=== PATIENT | female | born 1985 | race Caucasian/White ===

== ENCOUNTER 2017-08-23 10:54 | Emergency (ER) | payer MEDICAID ==
[2017-08-23 11:00] VITALS: BP 137/68
--- NOTE | 2017-08-23 12:31 | ED Physician Documentation ---
PD HPI SKIN - Stated complaint Stated Complaint: ABSCESS ON SHLDR - Chief complaint Chief Complaint: Wound - History obtained from History obtained from: Patient - History of Present Illness Timing - onset: Other (She has a remote history of MRSA, developed an abscess about 4-5 days ago over the left deltoid. It is was seen at [facility] 2 days ago, per her description and I&D was attempted but there was really no drainage. It popped spontaneously in the shower yesterday but still has swelling and fluctuance. No fevers. She is on Bactrim. Of note she has a history of heroin abuse, last use was about a week ago and she does have recent track powers in the left antecubital fossa, but declines to talk with the nursing home social worker about this.) Review of Systems Constitutional: denies: Fever, Chills Nose: denies: Rhinorrhea / runny nose, Congestion Cardiac: denies: Chest pain / pressure, Palpitations Respiratory: denies: Dyspnea PD PAST MEDICAL HISTORY - Past Medical History Past Medical History: Yes Cardiovascular: Hypertension Respiratory: Pneumonia, Other Endocrine/Autoimmune: None GI: None : None HEENT: None Psych: Depression, Anxiety Musculoskeletal: Other Derm: None - Past Surgical History Past Surgical History: Yes Ortho: ACL reconstruction - Present Medications Home Medications: Ambulatory Orders Medication Instructions Recorded Confirmed Venlafaxine ER [Effexor ER] 150 mg PO DAILY 08/24/13 07/29/15 Sulfamethox/Trimeth 800/160 1 each PO BID 08/23/17 08/23/17 [Bactrim Ds 800/160] Water Pill 08/23/17 - Allergies Allergies/Adverse Reactions: Allergies Allergy/AdvReac Type Severity Reaction Status Date / Time No Known Drug Allergies Allergy Verified 08/23/17 11:00 - Social History Does the pt smoke?: No Smoking Status: Never smoker Does the pt drink ETOH?: No Does the pt have substance abuse?: No - Immunizations Immunizations are current?: No - POLST Patient has POLST: No PD ED PE NORMAL - Vitals Vital signs reviewed: Yes - General General: Alert and oriented X 3, No acute distress - Extremities Extremities: Other (Track powers left antecubital fossa, there is a pointed abscess over the left deltoid, small to moderate in size with overlying cellulitis, good range of motion of the shoulder.) - Neuro Neuro: Alert and oriented X 3, Normal speech Results - Vitals Vitals: Vital Signs - 24 hr 08/23/17 10:57 Temperature 36.7 C Heart Rate 72 Respiratory 18 Rate Blood Pressure 137/68 H O2 Saturation 97 Oxygen O2 Source Room air Procedures - Abscess I&D (location) L deltoid Preparation: Betadine, Lidocaine 1%, Marcaine 0.5% Incision: Incised with scalpel, Purulent drainage, Loculations broken, Packed, Culture obtained Other: Pt tolerated well, Dressing applied, Antibiotic prescribed Departure - Departure Disposition: 01 Home, Self Care Clinical Impression: Abscess Condition: Good Record reviewed to determine appropriate education?: Yes Instructions: ED Abscess IandD Comments: Continue the sulfa based antibiotic you are on. We are performing a wound culture, the results should be done in 48-72 hours. If antibiotic change is necessary we will call you. Return if worse in the meantime, especially if you develop increased pain, fevers, cannot keep down the medication. Otherwise follow-up with your physician in approximately 2-3 days. Your blood pressure was elevated today on check into the emergency department. This does not mean that you have hypertension, it is a common phenomenon to come to the emergency department and have elevated blood pressure. I recommend that you see your primary care physician within the week to have it rechecked when you are feeling better. Discharge Date/Time: 08/23/17 12:49
== END 2017-08-23 12:49 | disposition home or self-care (01) ==
LOC: ED 10:54
DX: L02.414 Cutaneous abscess of left upper limb (principal); L03.114 Cellulitis of left upper limb; I10 Essential (primary) hypertension; Z86.14 Personal history of Methicillin resistant Staphylococcus aureus infection
CPT/HCPCS: 10060; 87070; 87205; 99282

== ENCOUNTER 2017-09-20 09:30 | Emergency (ER) | payer MEDICAID ==
[2017-09-20] MEDS ORDERED: ONDANSETRON 4 MG/2 ML VIAL IVP STA (09:52)
[2017-09-20] MEDS ORDERED: FAMOTIDINE 20 MG/50 ML 50 ML IV ONE (09:52)
[2017-09-20 10:16] LABS: BASOPHILS # (AUTO) 0.1 10^3/uL (0.0-0.1); BASOPHILS % (AUTO) 0.6 %; EOSINOPHILS # (AUTO) 0.1 10^3/uL (0.0-0.7); EOSINOPHILS % (AUTO) 1.7 %; HGB - HEMOGLOBIN 12.6 g/dL (12.0-16.0); LYMPHOCYTES # (AUTO) 1.1 10^3/uL (1.5-3.5); LYMPHOCYTES % (AUTO) 13.5 %; MEAN CORPUSCULAR HEMOGLOBIN 29.1 pg (27.0-31.0); MEAN CORPUSCULAR HGB CONC 34.7 g/dL (32.0-36.0); MEAN CORPUSCULAR VOLUME 83.9 fL (81.0-99.0); MEAN PLATELET VOLUME 7.9 fL (7.9-10.8); MONOCYTES # (AUTO) 0.5 10^3/uL (0.0-1.0); MONOCYTES % (AUTO) 5.8 %; NEUTROPHILS # (AUTO) 6.3 10^3/uL (1.5-6.6); NEUTROPHILS % (AUTO) 78.4 %; PLT - PLATELET COUNT 289 10^3/uL (130-450); RED BLOOD COUNT 4.34 10^6/uL (4.20-5.40); RED CELL DISTRIBUTION WIDTH 12.4 % (12.0-15.0)
[2017-09-20 10:30] LABS: ALBUMIN 3.9 g/dL (3.2-5.5); ALKALINE PHOSPHATASE 47 IU/L (42-121); ALT ALANINE AMINOTRANSFERASE 56 IU/L (10-60); AST ASPARTATE AMINOTRANSFERASE 45 IU/L (10-42); BUN - BLOOD UREA NITROGEN 9 mg/dL (6-20); CARBON DIOXIDE - CO2 24 mmol/L (21-32); CHLORIDE 102 mmol/L (101-111); CREATININE 0.6 mg/dL (0.4-1.0); GFR - MDRD 116 (>89); GLUCOSE 111 mg/dL (70-100); SODIUM 134 mmol/L (135-145); TOTAL PROTEIN 7.7 g/dL (6.7-8.2)
[2017-09-20 10:31] LABS: LIPASE < 10 U/L (22-51)
--- NOTE | 2017-09-20 11:18 | ED Physician Documentation ---
History of Present Illness - Stated complaint Stated Complaint: VOMITING - Chief complaint Chief Complaint: Abd Pain - Additonal information Additional information: hx from pt 32 f no prior abd surgery denies preg hx upper abd pain, was going to get EGD but got better to ED with a motnh of upper abd pain occ vomit blood no blood in BM hx Hep C 2/2 IVDA but no hx cirrhosis or varices no fever Review of Systems Constitutional: denies: Fever Cardiac: denies: Chest pain / pressure Respiratory: denies: Dyspnea GI: reports: Abdominal Pain (discomfort and nausea), Nausea, Hematemesis. denies: Vomiting, Diarrhea, Bloody / black stool : denies: Now EGA (denies) PD PAST MEDICAL HISTORY - Past Medical History Past Medical History: No Cardiovascular: Hypertension Respiratory: Pneumonia, Other Endocrine/Autoimmune: None GI: GERD : None HEENT: None Psych: Depression, Anxiety Musculoskeletal: Other Derm: None Other Past Medical History: Hep C positive - Past Surgical History Past Surgical History: Yes Ortho: ACL reconstruction, Other - Present Medications Home Medications: Ambulatory Orders Medication Instructions Recorded Confirmed Ondansetron Odt [Zofran] 4 mg TL Q6H PRN #10 tablet 09/20/17 Sucralfate 1 gm PO ACHS #120 tablet 09/20/17 raNITIdine [Zantac] 150 mg PO BID #60 tablet 09/20/17 - Allergies Allergies/Adverse Reactions: Allergies Allergy/AdvReac Type Severity Reaction Status Date / Time No Known Drug Allergies Allergy Verified 08/23/17 11:00 - Social History Does the pt smoke?: No Smoking Status: Never smoker Does the pt drink ETOH?: No Does the pt have substance abuse?: Yes Substance Use and Type: Meth, Heroin - Immunizations Immunizations are current?: No - POLST Patient has POLST: No PD ED PE NORMAL - Vitals Vital signs reviewed: Yes - Cardiac Cardiac: RRR - Respiratory Respiratory: No respiratory distress, Clear bilaterally - Abdomen Abdomen: Soft, Other (minimally TTP, no pulsatile mass, no distensions or ascites) - Derm Derm: Normal color - Neuro Neuro: Alert and oriented X 3 Results - Vitals Vitals: Vital Signs - 24 hr 09/20/17 09/20/17 09:40 11:31 Temperature 36.4 C L Heart Rate 84 73 Respiratory 16 18 Rate Blood Pressure 143/89 H 118/71 O2 Saturation 96 100 Oxygen O2 Source Room air - Labs Labs: Laboratory Tests 09/20/17 09/20/17 09/20/17 09:50 10:11 10:11 WBC 8.0 RBC 4.34 Hgb 12.6 Hct 36.4 L MCV 83.9 MCH 29.1 MCHC 34.7 RDW 12.4 Plt Count 289 MPV 7.9 Neut # 6.3 Lymph # 1.1 L [place] # 0.5 Eos # 0.1 Baso # 0.1 Absolute Nucleated RBC 0.00 Nucleated RBC % 0.0 Sodium 134 L Potassium 3.9 Chloride 102 Carbon Dioxide 24 Anion Gap 8.0 BUN 9 Creatinine 0.6 Estimated GFR (MDRD) 116 Glucose 111 H Calcium 9.0 Total Bilirubin 1.0 AST 45 H ALT 56 Alkaline Phosphatase 47 Total Protein 7.7 Albumin 3.9 Globulin 3.8 Albumin/Globulin Ratio 1.0 Lipase < 10 L Serum HCG, Qual NEGATIVE Ethyl Alcohol < 5.0 PD MEDICAL DECISION MAKING - ED course ED course: sx c/w gastritis / PUD last vomited blood several days ago, hemodynamically stable, nl H/H will dc with H2B carafate zofran and referral to surgery for EGD Departure - Departure Disposition: 01 Home, Self Care Clinical Impression: Gastritis Qualifiers: Gastritis type: unspecified gastritis Chronicity: acute Gastritis bleeding: with bleeding Qualified Code(s): K29.01 - Acute gastritis with bleeding Instructions: ED PUD Vs Gastritis Follow-Up: Edson iLnder MD [Primary Care Provider] - Teofilo Larios MD [Provider Admit Priv/Credential] - Prescriptions: Ondansetron Odt [Zofran] 4 mg TL Q6H PRN #10 tablet PRN Reason: Nausea / Vomiting raNITIdine [Zantac] 150 mg PO BID #60 tablet Sucralfate 1 gm PO ACHS #120 tablet Comments: Your labs look fine I think it is safe for you to go home for now I do recommend you call the surigcial clinic to get the endoscopy scheduled Take the medications I prescribed Avoid alcohol, spicy foods, citrus and NSAIDS such as motrin Return to the ER if worse
[2017-09-20 11:31] VITALS: BP 118/71
[2017-09-20] MEDS ORDERED: MAG HYDROX/AL HYDROX/SIMETH 30 ML UDC PO STA (11:43)
[2017-09-20] MEDS ORDERED: LIDOCAINE VISCOUS 2% 15 ML UDC MM STA (11:43)
[2017-09-20 11:44] LABS: HCG,QUALITATIVE BLOOD NEGATIVE
== END 2017-09-20 12:02 | disposition home or self-care (01) ==
LOC: ED 09:30
DX: K29.01 Acute gastritis with bleeding (principal); I10 Essential (primary) hypertension
CPT/HCPCS: 36415; 80053; 80320; 83690; 84703; 85025; 96365; 96375; 99283; A9270

== ENCOUNTER 2017-10-06 08:48 | Outpatient (CLI) | payer MEDICAID ==
[2017-10-06 12:46] LABS: BASOPHILS % (AUTO) 0.5 %; EOSINOPHILS # (AUTO) 0.2 10^3/uL (0.0-0.7); EOSINOPHILS % (AUTO) 2.6 %; LYMPHOCYTES # (AUTO) 1.3 10^3/uL (1.5-3.5); LYMPHOCYTES % (AUTO) 19.7 %; MEAN CORPUSCULAR HEMOGLOBIN 29.1 pg (27.0-31.0); MEAN CORPUSCULAR HGB CONC 34.6 g/dL (32.0-36.0); MEAN CORPUSCULAR VOLUME 84.2 fL (81.0-99.0); MEAN PLATELET VOLUME 9.1 fL (7.9-10.8); MONOCYTES # (AUTO) 0.4 10^3/uL (0.0-1.0); MONOCYTES % (AUTO) 5.7 %; NEUTROPHILS # (AUTO) 4.6 10^3/uL (1.5-6.6); NEUTROPHILS % (AUTO) 71.5 %; PLT - PLATELET COUNT 295 10^3/uL (130-450); RED BLOOD COUNT 4.46 10^6/uL (4.20-5.40); RED CELL DISTRIBUTION WIDTH 12.7 % (12.0-15.0); WHITE BLOOD COUNT 6.4 x10^3/uL (4.8-10.8)
[2017-10-06 13:10] LABS: ALBUMIN 3.7 g/dL (3.2-5.5); ALKALINE PHOSPHATASE 57 IU/L (42-121); ALT ALANINE AMINOTRANSFERASE 67 IU/L (10-60); AST ASPARTATE AMINOTRANSFERASE 59 IU/L (10-42); BILIRUBIN,TOTAL 0.4 mg/dL (0.2-1.0); BUN - BLOOD UREA NITROGEN 9 mg/dL (6-20); CALCIUM 8.9 mg/dL (8.5-10.3); CARBON DIOXIDE - CO2 24 mmol/L (21-32); CHLORIDE 104 mmol/L (101-111); CHOL/HDL RATIO 4.2 (<4.4); CHOLESTEROL 152 mg/dL; CREATININE 0.5 mg/dL (0.4-1.0); GFR - MDRD 143 (>89); GLUCOSE 109 mg/dL (70-100); HDL CHOLESTEROL 36 mg/dL; LDL CHOLESTEROL,CALCULATED 100 mg/dL; LDL/HDL RATIO 2.8 (<4.4); SODIUM 135 mmol/L (135-145); TOTAL PROTEIN 7.5 g/dL (6.7-8.2); VLDL CHOLESTEROL 16 mg/dL
[2017-10-06 13:28] LABS: MUDS CUTOFF CONCENTRATIONS CUTOFF CONC BELOW:
[2017-10-06 19:34] LABS: AMPHETAMINE SCREEN,URINE NEGATIVE (NEGATIVE); BENZODIAZEPINES SCREEN, URINE NEGATIVE (NEGATIVE); COCAINE SCREEN URINE NEGATIVE (NEGATIVE); METHADONE SCREEN, URINE NEGATIVE (NEGATIVE); METHAMPHETAMINES SCREEN, URINE NEGATIVE (NEGATIVE); OPIATE SCREEN, URINE POSITIVE (NEGATIVE); OXYCODONE SCREEN, URINE NEGATIVE (NEGATIVE); PROPOXYPHENE SCREEN, URINE NEGATIVE (NEGATIVE); TRICYCLIC ANTIDEPRESSANT,URINE NEGATIVE (NEGATIVE)
[2017-10-07 13:57] LABS: HEPATITIS B CORE AB TOTAL NON-REACTIVE (NON-REACTIVE)
[2017-10-07 13:59] LABS: HEPATITIS B SURFACE ANTIGEN NON-REACTIVE (NON-REACTIVE)
[2017-10-08 17:16] LABS: HCV RNA QNT 5.65 Log IU/mL (NOT DETECTED); HCV RNA QUANT RT PCR 446000 IU/mL (NOT DETECTED)
== END 2017-10-06 08:49 | disposition home or self-care (01) ==
LOC: LAB.N 08:48
PROVIDERS: ATTEND Family Medicine
DX: F11.10 Opioid abuse, uncomplicated (principal); I10 Essential (primary) hypertension; R11.2 Nausea with vomiting, unspecified; K30 Functional dyspepsia; B18.2 Chronic viral hepatitis C; E66.01 Morbid (severe) obesity due to excess calories
CPT/HCPCS: 36415; 80053; 80061; 80306; 83721; 84443; 85025; 86317; 86704; 86707; 86709; 87340; 87350; 87522

== ENCOUNTER 2018-08-24 15:47 | Emergency (ER) | payer MEDICAID ==
[2018-08-24] MEDS ORDERED: ONDANSETRON 4 MG/2 ML VIAL IVP STA (16:19)
[2018-08-24] MEDS ORDERED: DEXAMETHASONE 10 MG/ML VIAL IVP STA (16:19)
[2018-08-24] MEDS ORDERED: KETOROLAC 30 MG/ML VIAL IVP STA (16:19)
[2018-08-24] MEDS ORDERED: SODIUM CHLORIDE 0.9% 1,000 ML IV ONE (16:19)
--- NOTE | 2018-08-24 16:28 | ED Physician Documentation ---
PD HPI NVD - Stated complaint Stated Complaint: FLU SYMPTOMS - Chief complaint Chief Complaint: Abd Pain - History obtained from History obtained from: Patient - History of Present Illness Timing - onset: How many days ago (2) Timing - duration: Days (2) Timing - details: Gradual onset, Still present Associated symptoms: Abdominal pain, Near syncope / syncope, Loss of appetite Contributing factors: Sick contact Improved by: Laying still, Vomiting Worsened by: Eating Similar symptoms before: Has not had sx before Recently seen: Not recently seen - Additonal information Additional information: Previously well 32-year-old female is a daughter who is been sick with influenza a and the patient herself has become ill with a cough and congestion 2 days ago she has not had much in way of a fever she has had a lot of vomiting yesterday and today she has vomited a bit less. She has had a headache associated with this. Review of Systems Constitutional: reports: Chills, Myalgias, Fatigue. denies: Fever Eyes: denies: Decreased vision Ears: denies: Ear pain Nose: reports: Rhinorrhea / runny nose, Congestion Throat: reports: Sore throat Cardiac: denies: Chest pain / pressure, Palpitations Respiratory: reports: Dyspnea, Cough GI: reports: Abdominal Pain, Nausea, Vomiting : denies: Dysuria, Frequency PD PAST MEDICAL HISTORY - Past Medical History Past Medical History: Yes Cardiovascular: Hypertension Respiratory: Pneumonia, Other Endocrine/Autoimmune: None GI: GERD : None HEENT: None Psych: Depression, Anxiety Musculoskeletal: Other Derm: None - Past Surgical History Past Surgical History: Yes Ortho: ACL reconstruction, Other - Present Medications Home Medications: Ambulatory Orders Medication Instructions Recorded Confirmed Ondansetron Odt [Zofran] 4 mg TL Q6H PRN #10 tablet 09/20/17 Sucralfate 1 gm PO ACHS #120 tablet 09/20/17 raNITIdine [Zantac] 150 mg PO BID #60 tablet 09/20/17 Ondansetron Odt [Zofran] 4 mg TL Q6H PRN #10 tablet 08/24/18 - Allergies Allergies/Adverse Reactions: Allergies Allergy/AdvReac Type Severity Reaction Status Date / Time No Known Drug Allergies Allergy Verified 08/24/18 15:59 - Social History Does the pt smoke?: No Smoking Status: Never smoker Does the pt drink ETOH?: No Does the pt have substance abuse?: Yes - Immunizations Immunizations are current?: No - POLST Patient has POLST: No PD ED PE NORMAL - Vitals Vital signs reviewed: Yes (normal ) - General General: Alert and oriented X 3, Well developed/nourished - HEENT HEENT: Atraumatic, PERRL, EOMI, Ears normal, Other (dry mucous membranes ) - Neck Neck: Supple, no meningeal sign, No bony TTP - Cardiac Cardiac: RRR, No murmur - Respiratory Respiratory: No respiratory distress, Clear bilaterally - Abdomen Abdomen: Soft, Non tender, Non distended - Back Back: No CVA TTP, No spinal TTP - Derm Derm: Normal color, No rash - Extremities Extremities: No deformity, No edema - Neuro Neuro: Alert and oriented X 3, paint mixer 2-12 intact, No motor deficit, No sensory deficit, Normal speech Eye Opening: Spontaneous Motor: Obeys Commands Verbal: Oriented GCS Score: 15 - Psych Psych: Normal mood, Normal affect Results - Vitals Vitals: Vital Signs - 24 hr 08/24/18 15:56 Temperature 36.2 C L Heart Rate 92 Respiratory 18 Rate Blood Pressure 125/73 O2 Saturation 95 Oxygen O2 Source Room air - Labs Labs: Laboratory Tests 08/24/18 08/24/18 08/24/18 16:30 16:30 16:45 WBC 5.3 RBC 4.82 Hgb 14.0 Hct 40.7 MCV 84.4 MCH 29.0 MCHC 34.4 RDW 12.7 Plt Count 244 MPV 8.5 Neut # (Auto) 3.3 Lymph # (Auto) 1.4 L [place] # (Auto) 0.5 Eos # (Auto) 0.0 Baso # (Auto) 0.1 Absolute Nucleated RBC 0.00 Nucleated RBC % 0.1 Sodium 136 Potassium 3.2 L Chloride 102 Carbon Dioxide 24 Anion Gap 10.0 BUN 16 Creatinine 0.7 Estimated GFR (MDRD) 97 Glucose 121 H Calcium 8.8 Total Bilirubin 0.5 AST 53 H ALT 65 H Alkaline Phosphatase 55 Total Protein 8.1 Albumin 3.9 Globulin 4.2 Albumin/Globulin Ratio 0.9 L Lipase 24 Influenza A (Rapid) POSITIVE H Influenza B (Rapid) Negative Procedures - IVC sono (time) 1620 Bedside IVC sono: IVC measures (cm) (0.88), IVC collapsed c insp (cm) (complete), Dehydration (est 2 liter deficit) PD MEDICAL DECISION MAKING - ED course Complexity details: reviewed old records, reviewed results, re-evaluated patient, considered differential, d/w patient ED course: 32 y/o female with cough and congestion with vomiting is found to be dehydrated on interrogation of the IVC. IV fluids are begun. The patient is given IV decadron, zofran and toradal and requires rescue with dilaudid. Departure - Departure Clinical Impression: Dehydration, Gastroenteritis, Influenza A Instructions: ED Flu, ED Dehydration Follow-Up: [facility] [Provider Group] Prescriptions: Ondansetron Odt [Zofran] 4 mg TL Q6H PRN #10 tablet PRN Reason: Nausea / Vomiting Forms: Activity restrictions
[2018-08-24 16:36] LABS: BASOPHILS # (AUTO) 0.1 10^3/uL (0.0-0.1); BASOPHILS % (AUTO) 1.1 %; EOSINOPHILS % (AUTO) 0.2 %; LYMPHOCYTES # (AUTO) 1.4 10^3/uL (1.5-3.5); LYMPHOCYTES % (AUTO) 26.7 %; MEAN CORPUSCULAR HGB CONC 34.4 g/dL (32.0-36.0); MEAN CORPUSCULAR VOLUME 84.4 fL (81.0-99.0); MEAN PLATELET VOLUME 8.5 fL (7.9-10.8); MONOCYTES # (AUTO) 0.5 10^3/uL (0.0-1.0); MONOCYTES % (AUTO) 10.1 %; NEUTROPHILS # (AUTO) 3.3 10^3/uL (1.5-6.6); NEUTROPHILS % (AUTO) 61.9 %; PLT - PLATELET COUNT 244 10^3/uL (130-450); RED BLOOD COUNT 4.82 10^6/uL (4.20-5.40); RED CELL DISTRIBUTION WIDTH 12.7 % (12.0-15.0); WHITE BLOOD COUNT 5.3 x10^3/uL (4.8-10.8)
[2018-08-24 16:47] LABS: ALBUMIN 3.9 g/dL (3.2-5.5); ALBUMIN/GLOBULIN RATIO 0.9 (1.0-2.2); BILIRUBIN,TOTAL 0.5 mg/dL (0.2-1.0); CALCIUM 8.8 mg/dL (8.5-10.3); CREATININE 0.7 mg/dL (0.4-1.0); TOTAL PROTEIN 8.1 g/dL (6.7-8.2)
[2018-08-24] MEDS ORDERED: POTASSIUM BICARB 25 MEQ TABLET PO STA (17:20)
[2018-08-24] MEDS ORDERED: HYDROmorphone 1 MG/ML CARPUJECT IVP STA (18:06)
[2018-08-24 18:23] VITALS: BP 137/75
== END 2018-08-24 18:44 | disposition home or self-care (01) ==
LOC: ED 15:47
DX: E86.0 Dehydration (principal); K52.9 Noninfective gastroenteritis and colitis, unspecified; J10.1 Influenza due to other identified influenza virus with other respiratory manifestations
CPT/HCPCS: 36415; 80053; 83690; 85025; 87275; 87276; 96361; 96374; 96375; 99283; A9270; J1170

== ENCOUNTER 2018-09-05 03:00 | Emergency (ER) | payer MEDICAID ==
--- NOTE | 2018-09-05 03:53 | ED Physician Documentation ---
History of Present Illness - Stated complaint Stated Complaint: HAND PX/COLD SX/SHOULDER PX - Chief complaint Chief Complaint: General - History obtained from History obtained from: Patient - History of Present Illness Timing: How many days ago (2-3) Pain level now: 8 Worsened by: palpation - Additonal information Additional information: c/o pain, swelling, redness left hand and left arm. recently injected (heroin) into these sites. also c/o lingering spectroscopist cough since T+R 2 weeks ago from this ED (influenza). S.O. is also registered as ED patient at this time for similar problem. Review of Systems Constitutional: reports: Reviewed and negative Respiratory: reports: Cough. denies: Dyspnea Skin: reports: Lesions Musculoskeletal: reports: Extremity pain, Extremity swelling PD PAST MEDICAL HISTORY - Past Medical History Past Medical History: Yes Cardiovascular: Hypertension Respiratory: Pneumonia, Other Endocrine/Autoimmune: None GI: GERD : None HEENT: None Psych: Depression, Anxiety, Bipolar disorder, ADD/ADHD Musculoskeletal: Other Derm: None - Past Surgical History Past Surgical History: Yes Ortho: ACL reconstruction, Other - Present Medications Home Medications: Ambulatory Orders Medication Instructions Recorded Confirmed Ondansetron Odt [Zofran] 4 mg TL Q6H PRN #10 tablet 09/20/17 Sucralfate 1 gm PO ACHS #120 tablet 09/20/17 raNITIdine [Zantac] 150 mg PO BID #60 tablet 09/20/17 Ondansetron Odt [Zofran] 4 mg TL Q6H PRN #10 tablet 08/24/18 Cephalexin [Keflex] 500 mg PO Q6H #28 capsule 09/05/18 Hydrocodone/Acetaminophen 1 - 2 each PO Q6H PRN #8 tablet 09/05/18 [Hydrocodon-Acetaminophen 5-325] Sulfamethox/Trimeth 800/160 1 each PO BID #14 tablet 09/05/18 [Bactrim Ds 800/160] - Allergies Allergies/Adverse Reactions: Allergies Allergy/AdvReac Type Severity Reaction Status Date / Time No Known Drug Allergies Allergy Verified 09/05/18 03:17 - Social History Does the pt smoke?: Yes Smoking Status: Current every day smoker Does the pt drink ETOH?: No Does the pt have substance abuse?: Yes Substance Use and Type: Heroin - Immunizations Immunizations are current?: No Immunizations: TDAP >10years/unknown, Other immun not current - POLST Patient has POLST: No PD ED PE NORMAL - Vitals Vital signs reviewed: Yes - General General: Alert and oriented X 3, No acute distress, Well developed/nourished - Respiratory Respiratory: No respiratory distress, Clear bilaterally - Neuro Neuro: No motor deficit, No sensory deficit PD ED PE EXPANDED - Extremities Extremities: Tenderness, Swelling, Other (both areas marked on diagram are indurated but without fluctuance or palpable abscess) PATRICIA UE/Hands Visual: 1 - swelling, tenderness 2 - swelling, tenderness Results - Vitals Vitals: Oxygen O2 Source Room air PD MEDICAL DECISION MAKING - ED course Complexity details: considered differential, d/w patient Departure - Departure Disposition: 01 Home, Self Care Clinical Impression: Cellulitis Condition: Good Instructions: ED Infec Skin Cellulitis Follow-Up: [facility] [Provider Group] [facility] [Provider Group] Prescriptions: Cephalexin [Keflex] 500 mg PO Q6H #28 capsule Hydrocodone/Acetaminophen [Hydrocodon-Acetaminophen 5-325] 1 - 2 each PO Q6H PRN #8 tablet PRN Reason: pain Sulfamethox/Trimeth 800/160 [Bactrim Ds 800/160] 1 each PO BID #14 tablet Discharge Date/Time: 09/05/18 04:48
[2018-09-05] MEDS ORDERED: HYDROcod/ACET 5/325 Prepack 4 PO STA (04:27)
[2018-09-05] MEDS ORDERED: cephALEXin 250 MG CAPSULE PO STA (04:27)
[2018-09-05] MEDS ORDERED: IBUPROFEN 600 MG TABLET PO STA (04:27)
[2018-09-05] MEDS ORDERED: SULFAMETH/TRIMETH DS 800/160 MG TABLET PO STA (04:27)
[2018-09-05 04:43] VITALS: BP 162/82
== END 2018-09-05 04:48 | disposition home or self-care (01) ==
LOC: ED 03:00
DX: L03.114 Cellulitis of left upper limb (principal); F11.10 Opioid abuse, uncomplicated; I10 Essential (primary) hypertension; F17.200 Nicotine dependence, unspecified, uncomplicated
CPT/HCPCS: 99283; A9270

== ENCOUNTER 2018-09-14 15:47 | Emergency (ER) | payer MEDICAID ==
[2018-09-14] MEDS ORDERED: BUFFERED LIDOCAINE 10 ML SYRINGE SUBQ STA (16:28)
--- NOTE | 2018-09-14 16:28 | ED Physician Documentation ---
PD HPI SKIN - Stated complaint Stated Complaint: L SHOULDER PX/SWELLING - History obtained from History obtained from: Patient - History of Present Illness Timing - onset: How many days ago (10) Timing - duration: Days (10) Timing - details: Gradual onset, Still present Location: LUE Quality / character: Painful, Swelling Associated symptoms: Myalgias Contributing factors: Other (ad[place] [facility] [place]) Similar symptoms before: Diagnosis (abscess) Recently seen: Emergency Dept - Additional information Additional information: 33-year-old female is been placed onto Keflex and sulfa [place] trimethoprim last week for an abscess to her left arm. Despite taking the antibiotic and warm compress she has progression of symptoms and now has a fluctuant area. Review of Systems Constitutional: reports: Myalgias. denies: Fever Eyes: denies: Decreased vision Ears: denies: Ear pain Nose: denies: Congestion Throat: denies: Sore throat Respiratory: denies: Cough GI: denies: Vomiting PD PAST MEDICAL HISTORY - Past Medical History Cardiovascular: Hypertension Respiratory: Pneumonia, Other Endocrine/Autoimmune: None GI: GERD : None HEENT: None Psych: Depression, Anxiety, Bipolar disorder, ADD/ADHD Musculoskeletal: Other Derm: None - Past Surgical History Past Surgical History: Yes Ortho: ACL reconstruction, Other - Present Medications Home Medications: Ambulatory Orders Medication Instructions Recorded Confirmed Ondansetron Odt [Zofran] 4 mg TL Q6H PRN #10 tablet 09/20/17 Sucralfate 1 gm PO ACHS #120 tablet 09/20/17 raNITIdine [Zantac] 150 mg PO BID #60 tablet 09/20/17 Ondansetron Odt [Zofran] 4 mg TL Q6H PRN #10 tablet 08/24/18 Cephalexin [Keflex] 500 mg PO Q6H #28 capsule 09/05/18 Hydrocodone/Acetaminophen 1 - 2 each PO Q6H PRN #8 tablet 09/05/18 [Hydrocodon-Acetaminophen 5-325] Sulfamethox/Trimeth 800/160 1 each PO BID #14 tablet 09/05/18 [Bactrim Ds 800/160] Cephalexin [Keflex] 500 mg PO Q6H #28 capsule 09/14/18 Sulfamethoxazole/Trimethoprim 1 each PO BID #14 tablet 09/14/18 [Sulfamethoxazole-Tmp Ds Tablet] - Allergies Allergies/Adverse Reactions: Allergies Allergy/AdvReac Type Severity Reaction Status Date / Time No Known Drug Allergies Allergy Verified 09/14/18 16:43 - Social History Does the pt smoke?: Yes Smoking Status: Current every day smoker Does the pt drink ETOH?: No Does the pt have substance abuse?: Yes - Immunizations Immunizations are current?: No Immunizations: TDAP >10years/unknown, Other immun not current - POLST Patient has POLST: No PD ED PE NORMAL - Vitals Vital signs reviewed: Yes - General General: Alert and oriented X 3, No acute distress, Well developed/nourished - HEENT HEENT: Atraumatic, PERRL, EOMI - Neck Neck: Supple, no meningeal sign - Respiratory Respiratory: No respiratory distress - Derm Derm: Normal color, Warm and dry, No rash - Extremities Extremities: No deformity, Other (There is an area over the left deltoid that is erythematous with swelling and tenderness and central fluctuance.) - Neuro Neuro: Alert and oriented X 3, process excellence manager 2-12 intact, No motor deficit, No sensory deficit, Normal speech Eye Opening: Spontaneous Motor: Obeys Commands Verbal: Oriented GCS Score: 15 - Psych Psych: Normal mood, Normal affect Results - Vitals Vitals: Vital Signs - 24 hr 09/14/18 16:00 Heart Rate 62 Respiratory 16 Rate Blood Pressure 125/66 O2 Saturation 100 Oxygen O2 Source Room air Procedures - Abscess I&D (location) left deltoid Preparation: Confirmed with ultrasound, Betadine, Lidocaine 1% Incision: Incised with scalpel, Purulent drainage (copious amount ~10ml), L oculations broken, Irrigated, Packed Other: Pt tolerated well, Dressing applied, Antibiotic prescribed PD MEDICAL DECISION MAKING - ED course Complexity details: reviewed results, re-evaluated patient, considered differential, d/w patient ED course: 33-year-old female with an abscess to her left deltoid that is raped and spiking on antibiotic and this is drained of nearly 10 mL's of pus that is not foul- smelling. The area is packed with 30 cm of 1 inch iodoform gauze. Departure - Departure Disposition: 01 Home, Self Care Clinical Impression: Abscess of left shoulder Condition: Stable Instructions: ED Abscess IandD Follow-Up: [facility] [Provider Group] Prescriptions: Cephalexin [Keflex] 500 mg PO Q6H #28 capsule Sulfamethoxazole/Trimethoprim [Sulfamethoxazole-Tmp Ds Tablet] 1 each PO BID #14 tablet Comments: .A wound culture has been obtained and we will have some sensitivities in 2-3 days. Follow-up for reevaluation of the wound in 3 days. Begin to remove a small amount of packing daily in 2 days.
[2018-09-14 16:43] VITALS: BP 125/66
[2018-09-14] MEDS ORDERED: HYDROcod/ACETAM 5/325 MG TABLET PO STA (17:14)
== END 2018-09-14 17:30 | disposition home or self-care (01) ==
LOC: ED 15:47
DX: L02.414 Cutaneous abscess of left upper limb (principal); I10 Essential (primary) hypertension; F17.200 Nicotine dependence, unspecified, uncomplicated
CPT/HCPCS: 10060; 87070; 87181; 87205; 96372; 99281; 99283; A9270

== ENCOUNTER 2018-11-17 14:55 | Emergency (ER) | payer MEDICAID ==
[2018-11-17] MEDS ORDERED: BUFFERED LIDOCAINE 10 ML SYRINGE SUBQ STA ×2 (16:51→17:23)
--- NOTE | 2018-11-17 16:54 | ED Physician Documentation ---
PD HPI SKIN - Stated complaint Stated Complaint: RT SHLD PX - Chief complaint Chief Complaint: Wound - History obtained from History obtained from: Patient - History of Present Illness Timing - onset: How many days ago (3) Timing - duration: Days (3) Timing - details: Gradual onset, Still present Location: RUE Quality / character: Painful, Discolored, Raised, Swelling Contributing factors: Other (IM heroin injection) Similar symptoms before: Diagnosis (abscess) Recently seen: Emergency Dept - Additional information Additional information: Impression: Nondisplaced humeral neck fracture. 33-year-old female with a history of IV drug abuse has been using IM heroin and she now has some large red lumps to the right upper arm. She has had these previously she has had to have abscess incised and drained. She last had this done September 14. Review of Systems Constitutional: denies: Fever Eyes: denies: Decreased vision Ears: denies: Ear pain Nose: denies: Congestion Throat: denies: Sore throat Respiratory: denies: Cough GI: denies: Abdominal Pain, Nausea, Vomiting : denies: Dysuria Skin: reports: Lesions Musculoskeletal: reports: Extremity pain. denies: Neck pain, Back pain Neurologic: denies: Generalized weakness, Focal weakness, Numbness PD PAST MEDICAL HISTORY - Past Medical History Cardiovascular: Hypertension Respiratory: Pneumonia, Other Endocrine/Autoimmune: None GI: GERD : None HEENT: None Psych: Depression, Anxiety, Bipolar disorder, ADD/ADHD Musculoskeletal: Other Derm: None - Past Surgical History Past Surgical History: Yes Ortho: ACL reconstruction, Other - Present Medications Home Medications: Ambulatory Orders Medication Instructions Recorded Confirmed Ondansetron Odt [Zofran] 4 mg TL Q6H PRN #10 tablet 09/20/17 Sucralfate 1 gm PO ACHS #120 tablet 09/20/17 raNITIdine [Zantac] 150 mg PO BID #60 tablet 09/20/17 Ondansetron Odt [Zofran] 4 mg TL Q6H PRN #10 tablet 08/24/18 Cephalexin [Keflex] 500 mg PO Q6H #28 capsule 09/05/18 Hydrocodone/Acetaminophen 1 - 2 each PO Q6H PRN #8 tablet 09/05/18 [Hydrocodon-Acetaminophen 5-325] Sulfamethox/Trimeth 800/160 1 each PO BID #14 tablet 09/05/18 [Bactrim Ds 800/160] Cephalexin [Keflex] 500 mg PO Q6H #28 capsule 09/14/18 Sulfamethoxazole/Trimethoprim 1 each PO BID #14 tablet 09/14/18 [Sulfamethoxazole-Tmp Ds Tablet] Hydrocodone/Acetaminophen 1 - 2 each PO Q6H PRN #14 tablet 11/17/18 [Hydrocodon-Acetaminophen 5-325] Sulfamethoxazole/Trimethoprim 1 each PO BID #14 tablet 11/17/18 [Sulfamethoxazole-Tmp Ds Tablet] - Allergies Allergies/Adverse Reactions: Allergies Allergy/AdvReac Type Severity Reaction Status Date / Time No Known Drug Allergies Allergy Verified 11/17/18 15:14 - Social History Does the pt smoke?: Yes Smoking Status: Current every day smoker Does the pt drink ETOH?: No Does the pt have substance abuse?: Yes - Immunizations Immunizations are current?: No Immunizations: TDAP >10years/unknown, Other immun not current - POLST Patient has POLST: No PD ED PE NORMAL - Vitals Vital signs reviewed: Yes (normal ) - General General: Alert and oriented X 3, No acute distress, Well developed/nourished - HEENT HEENT: Atraumatic, PERRL, EOMI - Neck Neck: Supple, no meningeal sign - Respiratory Respiratory: No respiratory distress - Derm Derm: Normal color, Warm and dry - Extremities Extremities: No deformity, Other (over the right arm there is an area about 5cm X 6cm of erythema warmth and tenderness with some central fluctuance and the presence of pus is confirmed with bedside ultrasound. ) - Neuro Neuro: Alert and oriented X 3, handle maker 2-12 intact, No motor deficit, No sensory deficit, Normal speech Eye Opening: Spontaneous Motor: Obeys Commands Verbal: Oriented GCS Score: 15 - Psych Psych: Normal mood, Normal affect Results - Vitals Vitals: Vital Signs - 24 hr 11/17/18 15:13 Temperature 37.1 C Heart Rate 67 Respiratory 18 Rate Blood Pressure 122/58 L O2 Saturation 98 Oxygen O2 Source Room air Procedures - Abscess I&D (location) right arm Preparation: Confirmed with ultrasound, Chlorhexadine, Lidocaine 1% Incision: Incised with scalpel, Purulent drainage (copious), Loculations broken, Irrigated, Packed, Culture obtained Other: Pt tolerated well, Dressing applied, Antibiotic prescribed PD MEDICAL DECISION MAKING - ED course Complexity details: reviewed results, re-evaluated patient, considered differential, d/w patient, d/w family ED course: 33-year-old female who has been muscling heroin has developed a large abscess on the right arm. This is incised and drained copious amounts of pus or returned the abscess cavity is thoroughly irrigated to clear and it is packed with 1 inch packing. I have asked the patient to return to the emergency department in 2 days time for reevaluation of her wound. We will put her back on Departure - Departure Disposition: Home, Self Care Clinical Impression: Abscess Condition: Stable Instructions: ED Abscess IandD Follow-Up: Cruz Smith PA-C [Primary Care Provider] - Prescriptions: Hydrocodone/Acetaminophen [Hydrocodon-Acetaminophen 5-325] 1 - 2 each PO Q6H PRN #14 tablet PRN Reason: pain Sulfamethoxazole/Trimethoprim [Sulfamethoxazole-Tmp Ds Tablet] 1 each PO BID #14 tablet Comments: Return to the ED in 2 days for wound check
[2018-11-17 18:00] VITALS: BP 119/60
== END 2018-11-17 18:00 | disposition home or self-care (01) ==
LOC: ED 14:55
DX: L02.413 Cutaneous abscess of right upper limb (principal); I10 Essential (primary) hypertension; F17.200 Nicotine dependence, unspecified, uncomplicated
CPT/HCPCS: 10061; 87070; 87077; 87205; 99283

== ENCOUNTER 2019-03-19 08:00 | Outpatient (CLI) | payer MEDICAID ==
[2019-03-19 19:10] LABS: BASOPHILS % (AUTO) 0.4 %; EOSINOPHILS # (AUTO) 0.2 10^3/uL (0.0-0.7); EOSINOPHILS % (AUTO) 1.6 %; HGB - HEMOGLOBIN 12.3 g/dL (12.0-16.0); LYMPHOCYTES # (AUTO) 2.1 10^3/uL (1.5-3.5); LYMPHOCYTES % (AUTO) 22.6 %; MEAN CORPUSCULAR HEMOGLOBIN 28.9 pg (27.0-31.0); MEAN CORPUSCULAR HGB CONC 33.2 g/dL (32.0-36.0); MEAN CORPUSCULAR VOLUME 87.1 fL (81.0-99.0); MEAN PLATELET VOLUME 10.3 fL (7.9-10.8); MONOCYTES # (AUTO) 0.5 10^3/uL (0.0-1.0); MONOCYTES % (AUTO) 5.1 %; NEUTROPHILS # (AUTO) 6.3 10^3/uL (1.5-6.6); NEUTROPHILS % (AUTO) 69.3 %; PLT - PLATELET COUNT 352 10^3/uL (130-450); RED BLOOD COUNT 4.25 10^6/uL (4.20-5.40); RED CELL DISTRIBUTION WIDTH 13.4 % (12.0-15.0); WHITE BLOOD COUNT 9.2 x10^3/uL (4.8-10.8)
[2019-03-19 19:42] LABS: ALBUMIN 3.7 g/dL (3.2-5.5); BILIRUBIN,DIRECT 0.1 mg/dL (0.1-0.5); BILIRUBIN,TOTAL 0.6 mg/dL (0.2-1.0); CALCIUM 9.1 mg/dL (8.5-10.3); CREATININE 0.6 mg/dL (0.4-1.0); TOTAL PROTEIN 7.5 g/dL (6.7-8.2)
[2019-03-20 08:47] LABS: HEPATITIS B SURFACE ANTIGEN NON-REACTIVE (NON-REACTIVE)
[2019-03-20 08:47] LABS: HEPATITIS C ANTIBODY REACTIVE (NON-REACTIVE)
[2019-03-20 14:01] LABS: HIV AG/AB 4TH GEN NON-REACTIVE (NON-REACTIVE)
[2019-03-22 19:36] LABS: HCV RNA QNT 5.15 Log IU/mL (NOT DETECTED); HCV RNA QUANT RT PCR 142000 IU/mL (NOT DETECTED)
== END 2019-03-19 23:59 | disposition home or self-care (01) ==
LOC: LAB.WCP 08:00
DX: F11.20 Opioid dependence, uncomplicated (principal)
CPT/HCPCS: 36415; 80048; 80076; 81599; 85025; 86592; 86704; 86705; 86708; 86709; 86803; 87340; 87389

== ENCOUNTER 2019-04-20 09:35 | Outpatient (CLI) | payer MEDICAID ==
[2019-04-20 12:15] LABS: BASOPHILS # (AUTO) 0.1 10^3/uL (0.0-0.1); BASOPHILS % (AUTO) 0.8 %; EOSINOPHILS # (AUTO) 0.3 10^3/uL (0.0-0.7); EOSINOPHILS % (AUTO) 5.3 %; HGB - HEMOGLOBIN 12.1 g/dL (12.0-16.0); LYMPHOCYTES # (AUTO) 2.1 10^3/uL (1.5-3.5); LYMPHOCYTES % (AUTO) 35.1 %; MEAN CORPUSCULAR HEMOGLOBIN 28.9 pg (27.0-31.0); MEAN CORPUSCULAR HGB CONC 33.3 g/dL (32.0-36.0); MEAN CORPUSCULAR VOLUME 86.8 fL (81.0-99.0); MEAN PLATELET VOLUME 10.5 fL (7.9-10.8); MONOCYTES # (AUTO) 0.6 10^3/uL (0.0-1.0); MONOCYTES % (AUTO) 9.9 %; NEUTROPHILS % (AUTO) 48.6 %; PLT - PLATELET COUNT 326 10^3/uL (130-450); RED BLOOD COUNT 4.18 10^6/uL (4.20-5.40); RED CELL DISTRIBUTION WIDTH 13.6 % (12.0-15.0); WHITE BLOOD COUNT 6.1 x10^3/uL (4.8-10.8)
[2019-04-20 12:42] LABS: ALBUMIN 3.6 g/dL (3.2-5.5); ALBUMIN/GLOBULIN RATIO 1.1 (1.0-2.2); BILIRUBIN,TOTAL 0.9 mg/dL (0.2-1.0); CREATININE 0.7 mg/dL (0.4-1.0); TOTAL PROTEIN 6.9 g/dL (6.7-8.2)
[2019-04-20 12:43] LABS: T4 (THYROXINE) 10.7 ug/dL (6.09-12.23)
[2019-04-20 12:44] LABS: THYROID STIMULATING HORMONE 1.58 uIU/mL (0.34-5.60)
[2019-04-20 12:51] LABS: TOTAL T3 1.54 ng/mL (0.87-1.78)
[2019-04-20 12:56] LABS: FOLATE 17.61 ng/mL (5.90 - >24.8)
== END 2019-04-20 23:59 | disposition home or self-care (01) ==
LOC: LAB.WCP 09:35
PROVIDERS: ATTEND Psychiatry & Neurology Psychiatry
DX: F43.10 Post-traumatic stress disorder, unspecified (principal)
CPT/HCPCS: 36415; 80053; 82306; 82607; 82746; 84436; 84443; 84480; 85025; 86800

== ENCOUNTER 2019-11-06 11:26 | Outpatient (CLI) | payer MEDICAID ==
[2019-11-06 13:35] LABS: BASOPHILS % (AUTO) 0.5 %; EOSINOPHILS # (AUTO) 0.4 10^3/uL (0.0-0.7); EOSINOPHILS % (AUTO) 4.2 %; HGB - HEMOGLOBIN 13.2 g/dL (12.0-16.0); LYMPHOCYTES # (AUTO) 2.3 10^3/uL (1.5-3.5); LYMPHOCYTES % (AUTO) 26.7 %; MEAN CORPUSCULAR HEMOGLOBIN 28.5 pg (27.0-31.0); MEAN CORPUSCULAR HGB CONC 32.4 g/dL (32.0-36.0); MEAN CORPUSCULAR VOLUME 87.9 fL (81.0-99.0); MEAN PLATELET VOLUME 11.1 fL (7.9-10.8); MONOCYTES # (AUTO) 0.5 10^3/uL (0.0-1.0); MONOCYTES % (AUTO) 5.7 %; NEUTROPHILS # (AUTO) 5.3 10^3/uL (1.5-6.6); NEUTROPHILS % (AUTO) 62.4 %; PLT - PLATELET COUNT 284 10^3/uL (130-450); RED BLOOD COUNT 4.63 10^6/uL (4.20-5.40); RED CELL DISTRIBUTION WIDTH 12.5 % (12.0-15.0); WHITE BLOOD COUNT 8.5 x10^3/uL (4.8-10.8)
[2019-11-06 14:08] LABS: ALBUMIN 3.9 g/dL (3.2-5.5); BILIRUBIN,TOTAL 0.6 mg/dL (0.2-1.0); CREATININE 0.7 mg/dL (0.4-1.0); TOTAL PROTEIN 7.8 g/dL (6.7-8.2)
[2019-11-07 12:49] LABS: HEPATITIS B SURFACE ANTIGEN NON-REACTIVE (NON-REACTIVE)
== END 2019-11-06 23:59 | disposition home or self-care (01) ==
LOC: LAB.WCP 11:26
PROVIDERS: ATTEND Internal Medicine
DX: B18.2 Chronic viral hepatitis C (principal)
CPT/HCPCS: 36415; 80053; 85025; 86317; 86704; 87340; 87522; 87902

== ENCOUNTER 2019-11-12 09:37 | Outpatient (CLI) | payer MEDICAID ==
--- NOTE | 2019-11-12 20:34 | Ultrasound Report ---
Reason: HEPATITIS C CHRONIC Procedure Date: 11/12/2019 Accession Number: [id number] / [id number] Procedure: US - Abdomen Limited CPT Code: Final Report FULL RESULT: EXAM: ABDOMEN ULTRASOUND LIMITED, RUQ EXAM DATE: 11/12/2019 09:37 AM. CLINICAL HISTORY: Hepatitis C chronic. COMPARISON: ABDOMEN 07/18/2014 10:03 AM. TECHNIQUE: Real-time scanning was performed with static images obtained. FINDINGS: Liver: Mildly echogenic hepatic parenchyma. No hepatic lesions. No intrahepatic ductal dilatation. 16.8 cm. Main portal vein flow: Hepatopetal. Gallbladder: Normal. No stones, wall thickening, or sonographic Blackwell's sign. Biliary System: CBD measures 6 mm. No intrahepatic or extrahepatic ductal dilatation. Other: Right kidney is normal in contour and echotexture and measures 12.4 cm. No hydronephrosis. IMPRESSION: 1. Mildly echogenic hepatic parenchyma, findings which can be seen with fatty replacement. No hepatic lesions. 2. Normal gallbladder. No biliary ductal dilatation. RADIA
== END 2019-11-12 09:38 | disposition home or self-care (01) ==
LOC: DI 09:37
PROVIDERS: ATTEND Internal Medicine
DX: B18.2 Chronic viral hepatitis C (principal)
CPT/HCPCS: 76705

== ENCOUNTER 2019-12-11 08:00 | Outpatient (CLI) | payer MEDICAID ==
[2019-12-11 18:35] LABS: BASOPHILS % (AUTO) 0.5 %; EOSINOPHILS # (AUTO) 0.3 10^3/uL (0.0-0.7); EOSINOPHILS % (AUTO) 4.3 %; HGB - HEMOGLOBIN 13.1 g/dL (12.0-16.0); LYMPHOCYTES % (AUTO) 25.5 %; MEAN CORPUSCULAR HEMOGLOBIN 29.5 pg (27.0-31.0); MEAN CORPUSCULAR HGB CONC 32.8 g/dL (32.0-36.0); MEAN CORPUSCULAR VOLUME 90.1 fL (81.0-99.0); MONOCYTES # (AUTO) 0.5 10^3/uL (0.0-1.0); MONOCYTES % (AUTO) 6.3 %; NEUTROPHILS # (AUTO) 4.9 10^3/uL (1.5-6.6); NEUTROPHILS % (AUTO) 63.1 %; PLT - PLATELET COUNT 278 10^3/uL (130-450); RED BLOOD COUNT 4.44 10^6/uL (4.20-5.40); RED CELL DISTRIBUTION WIDTH 12.5 % (12.0-15.0); WHITE BLOOD COUNT 7.8 x10^3/uL (4.8-10.8)
[2019-12-11 18:51] LABS: ALBUMIN 3.8 g/dL (3.2-5.5); BILIRUBIN,DIRECT 0.1 mg/dL (0.1-0.5); BILIRUBIN,TOTAL 0.9 mg/dL (0.2-1.0); CALCIUM 8.6 mg/dL (8.5-10.3); CREATININE 0.7 mg/dL (0.4-1.0); TOTAL PROTEIN 7.6 g/dL (6.7-8.2)
[2019-12-13 10:19] LABS: HIV AG/AB 4TH GEN NON-REACTIVE (NON-REACTIVE)
[2019-12-13 12:59] LABS: HEPATITIS C ANTIBODY REACTIVE (NON-REACTIVE)
[2019-12-23 13:39] LABS: HCV RNA QNT 5.49 Log IU/mL (NOT DETECTED); HCV RNA QUANT RT PCR 312000 IU/mL (NOT DETECTED)
== END 2019-12-11 23:59 | disposition home or self-care (01) ==
LOC: LAB.WCP 08:00
PROVIDERS: ATTEND Internal Medicine
DX: F11.20 Opioid dependence, uncomplicated (principal); B18.2 Chronic viral hepatitis C
CPT/HCPCS: 36415; 80048; 80076; 81599; 85025; 86317; 86592; 86704; 86705; 86708; 86709; 86803; 87340; 87389; 87522; 87902

== ENCOUNTER 2020-03-07 08:00 | Outpatient (CLI) | payer MEDICAID ==
[2020-03-07 13:26] LABS: HEMOGLOBIN A1c% 5.4 % (4.27-6.07)
[2020-03-07 13:28] LABS: CHOL/HDL RATIO 4.6 (<4.4); CHOLESTEROL 176 mg/dL; HDL CHOLESTEROL 38 mg/dL; LDL CHOLESTEROL,CALCULATED 113 mg/dL; VLDL CHOLESTEROL 25 mg/dL
== END 2020-03-07 23:59 | disposition home or self-care (01) ==
LOC: LAB.WCP 08:00
PROVIDERS: ATTEND Physician Assistant
DX: E66.01 Morbid (severe) obesity due to excess calories (principal); R73.03 Prediabetes
CPT/HCPCS: 36415; 80061; 83036; 83721

== ENCOUNTER 2020-04-14 13:10 | Outpatient (CLI) | payer MEDICAID ==
--- NOTE | 2020-04-14 15:49 | XRAY Report ---
PROCEDURE: Hips 2V BILAT INDICATIONS: BILAT HIP PAIN, LT KNEE PAIN TECHNIQUE: 2 views of the hip were acquired. COMPARISON: None FINDINGS: Bones: No fractures or dislocations. No suspicious bony lesions. The visualized pelvic ring appear s intact. Soft tissues: No suspicious soft tissue calcifications or masses. IMPRESSION: Large body habitus, moderately degraded quality of visualization. No definite trauma found. Reviewed by: Mynor Dolan MD on 04/14/2020 3:47 PM PDT Approved by: Mynor Dolan MD on 04/14/2020 3:47 PM PDT Station ID: [id number]
--- NOTE | 2020-04-14 15:51 | XRAY Report ---
PROCEDURE: Knee 2 View LT INDICATIONS: BILAT HIP PAIN, LT KNEE PAIN TECHNIQUE: 2 views of the left knee(s) were acquired. COMPARISON: Earlier left knee plain films 04/25/2015 reviewed. FINDINGS: Bones: No fractures or dislocations. No suspicious bony lesions. Interval orthopedic fixation gregory ce placed in the setting of presumed ACL reconstruction surgery. No sign of device loosening or disru ption. Progression of degenerative osteoarthritis at the medial compartment of the left knee, moderat e in overall severity. Soft tissues: No joint effusion. No suspicious soft tissue calcifications. IMPRESSION: Prior ACL repair appears intact. Progression of degenerative osteoarthritis at the media l compartment from 2014, overall now moderate in severity and previously mild. No joint effusion iden tified. Reviewed by: Mynor Dolan MD on 04/14/2020 3:50 PM PDT Approved by: Mynor Dolan MD on 04/14/2020 3:50 PM PDT Station ID: [id number]
== END 2020-04-14 13:11 | disposition home or self-care (01) ==
LOC: DI 13:10
PROVIDERS: ATTEND Physician Assistant
DX: M17.12 Unilateral primary osteoarthritis, left knee (principal); M25.552 Pain in left hip; M25.551 Pain in right hip
CPT/HCPCS: 73521

== ENCOUNTER 2020-09-22 07:00 | Outpatient (CLI) | payer MEDICAID | END 2020-09-22 23:59 | disposition home or self-care (01) | LOC: LAB.N 07:00 | PROVIDERS: ATTEND Family Medicine | DX: J06.9 Acute upper respiratory infection, unspecified (principal); Z20.822 Contact with and (suspected) exposure to COVID-19 ==

== ENCOUNTER 2020-11-27 08:00 | Outpatient (CLI) | payer MEDICAID ==
[2020-11-27 17:43] LABS: BASOPHILS # (AUTO) 0.1 10^3/uL (0.0-0.1); BASOPHILS % (AUTO) 0.6 %; EOSINOPHILS # (AUTO) 0.2 10^3/uL (0.0-0.7); EOSINOPHILS % (AUTO) 1.5 %; HCT - HEMATOCRIT 38.2 % (37.0-47.0); HGB - HEMOGLOBIN 12.5 g/dL (12.0-16.0); LYMPHOCYTES # (AUTO) 2.3 10^3/uL (1.5-3.5); LYMPHOCYTES % (AUTO) 22.1 %; MEAN CORPUSCULAR HEMOGLOBIN 29.2 pg (27.0-31.0); MEAN CORPUSCULAR HGB CONC 32.7 g/dL (32.0-36.0); MEAN CORPUSCULAR VOLUME 89.3 fL (81.0-99.0); MEAN PLATELET VOLUME 11.1 fL (7.9-10.8); MONOCYTES # (AUTO) 0.5 10^3/uL (0.0-1.0); MONOCYTES % (AUTO) 4.8 %; NEUTROPHILS # (AUTO) 7.4 10^3/uL (1.5-6.6); NEUTROPHILS % (AUTO) 70.6 %; PLT - PLATELET COUNT 309 10^3/uL (130-450); RED BLOOD COUNT 4.28 10^6/uL (4.20-5.40); RED CELL DISTRIBUTION WIDTH 12.5 % (12.0-15.0); WHITE BLOOD COUNT 10.4 x10^3/uL (4.8-10.8)
[2020-11-27 18:22] LABS: THYROID STIMULATING HORMONE 0.82 uIU/mL (0.34-5.60)
[2020-11-27 18:23] LABS: ALBUMIN 4.1 g/dL (3.2-5.5); ALBUMIN/GLOBULIN RATIO 1.1 (1.0-2.2); ALKALINE PHOSPHATASE 58 IU/L (42-121); ALT ALANINE AMINOTRANSFERASE 16 IU/L (10-60); AST ASPARTATE AMINOTRANSFERASE 20 IU/L (10-42); BILIRUBIN,TOTAL 0.4 mg/dL (0.2-1.0); BUN - BLOOD UREA NITROGEN 15 mg/dL (6-20); CALCIUM 9.1 mg/dL (8.5-10.3); CARBON DIOXIDE - CO2 28 mmol/L (21-32); CHLORIDE 104 mmol/L (101-111); CHOL/HDL RATIO 4.1 (<4.4); CHOLESTEROL 155 mg/dL; CREATININE 0.7 mg/dL (0.4-1.0); GFR - MDRD 95 (>89); GLUCOSE 95 mg/dL (70-100); HDL CHOLESTEROL 38 mg/dL; LDL CHOLESTEROL,CALCULATED 85 mg/dL; LDL/HDL RATIO 2.2 (<4.4); POTASSIUM 4.3 mmol/L (3.5-5.0); SODIUM 139 mmol/L (135-145); TOTAL PROTEIN 7.7 g/dL (6.7-8.2); TRIGLYCERIDES 158 mg/dL; VLDL CHOLESTEROL 32 mg/dL
[2020-11-27 19:56] LABS: ESTIMATED AVERAGE GLUCOSE 100 mg/dL (70-100); HEMOGLOBIN A1c% 5.1 % (4.27-6.07)
== END 2020-11-27 23:59 | disposition home or self-care (01) ==
LOC: LAB.WCP 08:00
PROVIDERS: ATTEND Family Medicine
DX: R73.03 Prediabetes (principal); I10 Essential (primary) hypertension; E66.01 Morbid (severe) obesity due to excess calories
CPT/HCPCS: 36415; 80053; 80061; 82607; 83036; 83721; 83970; 84443; 85025

== ENCOUNTER 2020-12-18 17:35 | Outpatient (CLI) | payer MEDICAID ==
--- NOTE | 2020-12-18 15:45 | XRAY Report ---
PROCEDURE: Knee 4 View BILAT INDICATIONS: DEGENERATIVE JOINT DISEASE TECHNIQUE: 4 views of the bilateral knee(s) were acquired. COMPARISON: X-ray left knee 04/14/2020. FINDINGS: Bones: No fractures or dislocations. No suspicious bony lesions. Left: Postsurgical changes are noted at the proximal tibia. There is moderate medial and minimal schmitt llofemoral compartment narrowing with minimal periarticular osteophytes. No erosions. Right: Minimal to mild medial and minimal patellofemoral compartment narrowing. No periarticular oste ophytes. No erosions. Soft tissues: No joint effusion. No suspicious soft tissue calcifications. IMPRESSION: Early arthritic change bilaterally, left greater than right. Reviewed by: Claudia Marques MD on 12/18/2020 3:43 PM PDT Approved by: Claudia Marques MD on 12/18/2020 3:43 PM PDT Station ID: [id number]
== END 2020-12-18 17:36 | disposition home or self-care (01) ==
LOC: DI.N 17:35
PROVIDERS: ATTEND Orthopaedic Surgery
DX: M17.0 Bilateral primary osteoarthritis of knee (principal)

== ENCOUNTER 2020-12-23 09:03 | Outpatient (CLI) | payer MEDICAID ==
--- NOTE | 2020-12-23 17:33 | XRAY Report ---
PROCEDURE: Finger(s) LT INDICATIONS: L FINGER PX TECHNIQUE: AP hand, 3 views of the second finger(s) acquired. COMPARISON: None FINDINGS: Bones: No fractures or dislocations. No suspicious bony lesions. Soft tissues: No suspicious soft tissue calcifications. IMPRESSION: No trauma found. Reviewed by: Mynor Dolan MD on 12/23/2020 5:32 PM PDT Approved by: Mynor Dolan MD on 12/23/2020 5:32 PM PDT Station ID: [id number]
== END 2020-12-23 23:59 ==
LOC: DI.N 09:03
PROVIDERS: ATTEND Orthopaedic Surgery
DX: M79.645 Pain in left finger(s) (principal)

== ENCOUNTER 2020-12-30 13:35 | Outpatient (CLI) | payer MEDICAID | END 2020-12-30 13:36 | disposition home or self-care (01) | LOC: LAB.N 13:35 | PROVIDERS: ATTEND Family Medicine | DX: J06.9 Acute upper respiratory infection, unspecified (principal); Z20.822 Contact with and (suspected) exposure to COVID-19 ==

== ENCOUNTER 2021-02-12 16:20 | Outpatient (CLI) | payer MEDICAID | END 2021-02-12 16:21 | disposition home or self-care (01) | LOC: COV 16:20 | PROVIDERS: ATTEND Family Medicine | DX: Z20.822 Contact with and (suspected) exposure to COVID-19 (principal) ==

== ENCOUNTER 2021-04-17 10:50 | Outpatient (CLI) | payer MEDICAID | END 2021-04-17 10:51 | disposition home or self-care (01) | LOC: NS 10:50 | PROVIDERS: ATTEND Family Medicine | DX: Z71.3 Dietary counseling and surveillance (principal); R73.03 Prediabetes; E66.01 Morbid (severe) obesity due to excess calories; Z68.42 Body mass index [BMI] 45.0-49.9, adult | CPT/HCPCS: 97802 ==

== ENCOUNTER 2021-04-27 08:00 | Outpatient (CLI) | payer MEDICAID | END 2021-04-27 08:01 | disposition home or self-care (01) | LOC: LAB.N 08:00 | PROVIDERS: ATTEND Physician Assistant Medical | DX: R39.9 Unspecified symptoms and signs involving the genitourinary system (principal) | CPT/HCPCS: 87086; 87181 ==

== ENCOUNTER 2021-07-17 09:54 | Outpatient (CLI) | payer MEDICAID ==
--- NOTE | 2021-07-17 10:42 | XRAY Report ---
PROCEDURE: Abdomen 2 View X-Ray INDICATIONS: CONSTIPATION, DRUG INDUCED TECHNIQUE: 1 view of the abdomen were acquired. COMPARISON: None. FINDINGS: Surgical changes and devices: None. Bowel: No pneumoperitoneum. Prominent stool in the right and transverse colon. There is scattered sm all bowel and colonic gas. Soft tissues: No masses; visualized solid organ contours appear normal in size. No suspicious abdom inal calcifications. Bones: No suspicious bony abnormalities. IMPRESSION: Prominent stool in the right and transverse colon. Reviewed by: Richy Ng MD on 07/17/2021 10:41 AM [facility] Approved by: Richy Ng MD on 07/17/2021 10:41 AM [facility] Station ID: [id number]
== END 2021-07-17 09:55 | disposition home or self-care (01) ==
LOC: DI.N 09:54
PROVIDERS: ATTEND Family Medicine
DX: K59.03 Drug induced constipation (principal)

== ENCOUNTER 2021-07-22 08:00 | Outpatient (CLI) | payer MEDICAID | END 2021-07-22 23:59 | disposition home or self-care (01) | LOC: LAB.N 08:00 | PROVIDERS: ATTEND Physician Assistant | DX: U07.1 COVID-19 (principal) ==

== ENCOUNTER 2021-07-24 11:24 | Emergency (ER) | payer MEDICAID ==
[2021-07-24 11:54] VITALS: BP 140/96
--- NOTE | 2021-07-24 12:26 | XRAY Report ---
PROCEDURE: Chest 1 View X-Ray INDICATIONS: SHORTNESS OF BREATH COUGH TECHNIQUE: One view of the chest was acquired. COMPARISON: None. FINDINGS: Surgical changes and devices: None. Lungs and pleura: No pleural effusions or pneumothorax. Lungs are clear. Mediastinum: Mediastinal contours appear normal. Heart size is normal. Bones and chest wall: No suspicious bony lesions. Overlying soft tissues appear unremarkable. IMPRESSION: No acute cardiopulmonary process demonstrated radiographically. Reviewed by: Chase Alarcon MD on 07/24/2021 12:25 PM PST Approved by: Chase Alarcon MD on 07/24/2021 12:25 PM [facility] Station ID: [id number]
--- NOTE | 2021-07-24 12:34 | ED Physician Documentation ---
History of Present Illness - Stated complaint Stated Complaint: C+ CHEST PX/PRESSURE - Chief complaint Chief Complaint: Resp - History obtained from History obtained from: Patient - Additonal information Additional information: She just got her first COVID shot last week. She became symptomatic 4 days ago with sore throat, severe body aches, sweats, cough, feeling like there is fluid in her lungs. No known sick contacts. 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 : None HEENT: None Psych: Depression, Anxiety, Bipolar disorder, ADD/ADHD Musculoskeletal: Other Derm: None - Past Surgical History Past Surgical History: Yes Ortho: ACL reconstruction, Other - Present Medications Home Medications: Ambulatory Orders Medication Instructions Recorded Confirmed Albuterol Sulf [Ventolin Hfa 1 - 2 puffs INH Q4HR PRN #1 inhaler 07/24/21 Inhaler] Benzonatate [Tessalon] 200 mg PO QID PRN #20 cap 07/24/21 Buprenorphine HCl/Naloxone HCl 1 film SL DAILY 07/24/21 07/24/21 [Suboxone 8 mg-2 mg Sl Film] HYDROcod/ACETAM 5/325 [Mason 5/325] 1 - 2 tab PO Q6H PRN #15 tablet 07/24/21 Ibuprofen [Motrin] 800 mg PO Q8H PRN #30 tablet 07/24/21 - Allergies Allergies/Adverse Reactions: Allergies Allergy/AdvReac Type Severity Reaction Status Date / Time No Known Drug Allergies Allergy Verified 11/17/18 15:14 - Social History Does the pt smoke?: Yes Smoking Status: Current every day smoker Does the pt drink ETOH?: No Does the pt have substance abuse?: Yes - Immunizations Immunizations are current?: No Immunizations: TDAP >10years/unknown, Other immun not current - POLST Patient has POLST: No PD ED PE NORMAL - General General: Alert and oriented X 3 (She appears diaphoretic but in no respiratory distress.) - Cardiac Cardiac: RRR, No murmur - Respiratory Respiratory: No respiratory distress, Other (Very mild bibasilar rhonchi) - Abdomen Abdomen: Soft, Non tender - Neuro Neuro: Alert and oriented X 3, Normal speech Results - Vitals Vitals: Vital Signs - 24 hr 07/24/21 11:50 Temperature 36.8 C Heart Rate 63 Respiratory 22 Rate Blood Pressure 140/96 H O2 Saturation 97 Oxygen O2 Source Room air - EKG (time done) 1203 Rate: Rate (enter#) (57) Rhythm: NSR Graton: Normal Intervals: Normal NM QRS: Normal Ischemia: Normal ST segments PD MEDICAL DECISION MAKING - ED course ED course: 35-year-old woman with "mild" COVID-19 based on work-up. No pertinent positive findings otherwise. Symptomatic relief was prescribed. Departure - Departure Disposition: Home, Self Care Clinical Impression: COVID-19 Condition: Good Record reviewed to determine appropriate education?: Yes Instructions: ED Viral Syndrome Prescriptions: Albuterol Sulf [Ventolin Hfa Inhaler] 1 - 2 puffs INH Q4HR PRN #1 inhaler PRN Reason: Shortness Of Air/Wheezing Ibuprofen [Motrin] 800 mg PO Q8H PRN #30 tablet PRN Reason: PAIN &/OR FEVER HYDROcod/ACETAM 5/325 [Mason 5/325] 1 - 2 tab PO Q6H PRN #15 tablet PRN Reason: Pain Benzonatate [Tessalon] 200 mg PO QID PRN #20 cap PRN Reason: Cough Comments: I sent her prescriptions [facility] [place]. Please follow CDC guidelines on self quarantine, return if worsening or if you develop more severe shortness of breath for recheck. I am prescribing a short course of narcotic pain medication for you. These are p otentially dangerous and addictive medications that should be used carefully. These medications may constipate you. Take an zbke-zns-fyjyqcw stool softener (docusate) twice daily with plenty of water while taking these medications. If you go 24 hours without a bowel movement, take uhaq-fyl-hoshtbu miralax, per package instructions. Do not drink or drive while taking these medications. If you received narcotic or sedating medications while in the emergency department, do not drive for 24 hours. Store this medication in a safe, secure place and out of reach of children. It is a violation of federal law to give or sell this medication to another person or to use in a manner other than prescribed. The ED will not refill narcotic prescriptions, including prescriptions lost or stolen. To dispose of unwanted medications: 1. [facility] at [address] in [place] has a medication drop box. They accept prescription medications (in pill form) Tuesday through Tuesday 9:00 a.m. to 5:00 p.m. 2. [facility] accepts prescription medications (in pill form only) for disposal year round. Call for more information. 3. Contact the [facility] for the next [facility] sponsored prescription drug collection event. , [phone], or [phone]; Note that many narcotic pain relievers also contain Tylenol/acetaminophen. Please ensure that your total dose of acetaminophen from all sources does not exceed 3 g (3000 mg) per day. Forms: Activity restrictions Discharge Date/Time: 07/24/21 13:04
== END 2021-07-24 13:04 | disposition home or self-care (01) ==
LOC: ED 11:24
DX: U07.1 COVID-19 (principal); I10 Essential (primary) hypertension; F17.200 Nicotine dependence, unspecified, uncomplicated
CPT/HCPCS: 93005; 99282; 99283

== ENCOUNTER 2021-08-27 11:42 | Outpatient (CLI) | payer MEDICAID ==
[2021-08-27 18:14] LABS: URIC ACID 5.2 mg/dL (2.6-7.2)
[2021-08-27 18:57] LABS: CRP - C-REACTIVE PROTEIN < 1.0 mg/dL (0-1.0)
[2021-08-27 19:49] LABS: RHEUMATOID FACTOR NEGATIVE (Negative)
== END 2021-08-27 11:43 | disposition home or self-care (01) ==
LOC: LAB.N 11:42
PROVIDERS: ATTEND Family Medicine
DX: M25.50 Pain in unspecified joint (principal)
CPT/HCPCS: 36415; 84550; 85651; 86140; 86200; 86430

== ENCOUNTER 2021-08-28 08:00 | Outpatient (CLI) | payer MEDICAID | END 2021-08-28 23:59 | disposition home or self-care (01) | LOC: LAB.N 08:00 | PROVIDERS: ATTEND Family Medicine | DX: M25.50 Pain in unspecified joint (principal) | CPT/HCPCS: 36415; 85651 ==

== ENCOUNTER 2022-05-04 10:49 | Outpatient (CLI) | payer MEDICAID ==
[2022-05-04 18:30] LABS: BASOPHILS # (AUTO) 0.1 10^3/uL (0.0-0.1); BASOPHILS % (AUTO) 0.7 %; EOSINOPHILS # (AUTO) 0.3 10^3/uL (0.0-0.7); EOSINOPHILS % (AUTO) 4.3 %; HCT - HEMATOCRIT 35.8 % (37.0-47.0); HGB - HEMOGLOBIN 11.8 g/dL (12.0-16.0); LYMPHOCYTES # (AUTO) 1.8 10^3/uL (1.5-3.5); LYMPHOCYTES % (AUTO) 23.8 %; MEAN CORPUSCULAR HEMOGLOBIN 29.4 pg (27.0-31.0); MEAN CORPUSCULAR VOLUME 89.3 fL (81.0-99.0); MEAN PLATELET VOLUME 10.8 fL (7.9-10.8); MONOCYTES # (AUTO) 0.4 10^3/uL (0.0-1.0); MONOCYTES % (AUTO) 5.9 %; NEUTROPHILS # (AUTO) 4.9 10^3/uL (1.5-6.6); NEUTROPHILS % (AUTO) 65.2 %; PLT - PLATELET COUNT 278 10^3/uL (130-450); RED BLOOD COUNT 4.01 10^6/uL (4.20-5.40); RED CELL DISTRIBUTION WIDTH 12.4 % (12.0-15.0); WHITE BLOOD COUNT 7.5 x10^3/uL (4.8-10.8)
[2022-05-04 18:48] LABS: ALBUMIN 4.1 g/dL (3.2-5.5); ALBUMIN/GLOBULIN RATIO 1.3 (1.0-2.2); ALKALINE PHOSPHATASE 45 IU/L (42-121); ALT ALANINE AMINOTRANSFERASE 16 IU/L (10-60); AST ASPARTATE AMINOTRANSFERASE 21 IU/L (10-42); BILIRUBIN,TOTAL 0.8 mg/dL (0.2-1.0); BUN - BLOOD UREA NITROGEN 16 mg/dL (6-20); CARBON DIOXIDE - CO2 27 mmol/L (21-32); CHLORIDE 106 mmol/L (101-111); CHOL/HDL RATIO 3.4 (<4.4); CHOLESTEROL 140 mg/dL; CREATININE 0.8 mg/dL (0.4-1.0); GFR - MDRD 81 (>89); GLUCOSE 83 mg/dL (70-100); HDL CHOLESTEROL 41 mg/dL; LDL CHOLESTEROL,CALCULATED 86 mg/dL; LDL/HDL RATIO 2.1 (<4.4); POTASSIUM 4.3 mmol/L (3.5-5.0); SODIUM 138 mmol/L (135-145); TOTAL PROTEIN 7.2 g/dL (6.7-8.2); TRIGLYCERIDES 63 mg/dL; VLDL CHOLESTEROL 13 mg/dL
[2022-05-04 18:57] LABS: THYROID STIMULATING HORMONE 0.64 uIU/mL (0.34-5.60)
== END 2022-05-04 10:50 | disposition home or self-care (01) ==
LOC: LAB.N 10:49
PROVIDERS: ATTEND Nurse Practitioner Family
DX: R53.83 Other fatigue (principal); R07.89 Other chest pain; R10.32 Left lower quadrant pain; F41.8 Other specified anxiety disorders
CPT/HCPCS: 36415; 80050; 80061; 83721

== ENCOUNTER 2022-05-06 12:22 | Outpatient (CLI) | payer MEDICAID ==
--- NOTE | 2022-05-06 15:14 | Ultrasound Report ---
PROCEDURE: Pelvic w/Transvaginal INDICATIONS: LLQ ABD PAIN TECHNIQUE: Real-time scanning was performed of the pelvic organs, with image documentation. Additional endovagi nal scanning was necessary due to incomplete visualization of the adnexal and endometrial structures by transabdominal scanning. COMPARISON: None. FINDINGS: Normal size and appearance of the uterus. No uterine mass. Normal endometrial thickness. Normal size and appearance of both ovaries. No uterine or adnexal mass. No free pelvic fluid. IMPRESSION: Normal exam. Reviewed by: Chase Alarcon MD on 05/06/2022 3:12 PM PST Approved by: Chase Alarcon MD on 05/06/2022 3:12 PM PST Station ID: [id number]
== END 2022-05-06 12:23 | disposition home or self-care (01) ==
LOC: DI 12:22
PROVIDERS: ATTEND Nurse Practitioner Family
DX: R10.32 Left lower quadrant pain (principal)

== ENCOUNTER 2023-01-17 12:41 | Outpatient (CLI) | payer MEDICAID ==
[2023-01-17 18:17] LABS: BASOPHILS % (AUTO) 0.6 %; EOSINOPHILS # (AUTO) 0.4 10^3/uL (0.0-0.7); EOSINOPHILS % (AUTO) 5.7 %; HCT - HEMATOCRIT 38.7 % (37.0-47.0); HGB - HEMOGLOBIN 12.8 g/dL (12.0-16.0); LYMPHOCYTES # (AUTO) 1.7 10^3/uL (1.5-3.5); LYMPHOCYTES % (AUTO) 25.8 %; MEAN CORPUSCULAR HEMOGLOBIN 29.9 pg (27.0-31.0); MEAN CORPUSCULAR HGB CONC 33.1 g/dL (32.0-36.0); MEAN CORPUSCULAR VOLUME 90.4 fL (81.0-99.0); MEAN PLATELET VOLUME 11.3 fL (7.9-10.8); MONOCYTES # (AUTO) 0.5 10^3/uL (0.0-1.0); MONOCYTES % (AUTO) 7.2 %; NEUTROPHILS # (AUTO) 3.9 10^3/uL (1.5-6.6); NEUTROPHILS % (AUTO) 60.5 %; PLT - PLATELET COUNT 260 10^3/uL (130-450); RED BLOOD COUNT 4.28 10^6/uL (4.20-5.40); RED CELL DISTRIBUTION WIDTH 12.3 % (12.0-15.0); WHITE BLOOD COUNT 6.5 x10^3/uL (4.8-10.8)
[2023-01-17 18:41] LABS: ALBUMIN 4.2 g/dL (3.2-5.5); ALBUMIN/GLOBULIN RATIO 1.4 (1.0-2.2); ALKALINE PHOSPHATASE 51 IU/L (42-121); ALT ALANINE AMINOTRANSFERASE 10 IU/L (10-60); AST ASPARTATE AMINOTRANSFERASE 14 IU/L (10-42); BILIRUBIN,TOTAL 0.4 mg/dL (0.2-1.0); BUN - BLOOD UREA NITROGEN 14 mg/dL (6-20); CALCIUM 9.3 mg/dL (8.5-10.3); CARBON DIOXIDE - CO2 29 mmol/L (21-32); CHLORIDE 105 mmol/L (101-111); CHOL/HDL RATIO 3.6 (<4.4); CHOLESTEROL 148 mg/dL; CREATININE 0.7 mg/dL (0.6-1.3); GFR - MDRD 94 (>89); GLUCOSE 92 mg/dL (74-104); HDL CHOLESTEROL 41 mg/dL; LDL CHOLESTEROL,CALCULATED 84 mg/dL; POTASSIUM 4.1 mmol/L (3.5-4.5); SODIUM 138 mmol/L (135-145); TOTAL PROTEIN 7.3 g/dL (6.4-8.9); TRIGLYCERIDES 115 mg/dL (48-352); VLDL CHOLESTEROL 23 mg/dL
[2023-01-17 18:49] LABS: ESTIMATED AVERAGE GLUCOSE 103 mg/dL (70-100); HEMOGLOBIN A1c% 5.2 % (4.27-6.07)
== END 2023-01-17 12:42 | disposition home or self-care (01) ==
LOC: LAB.N 12:41
PROVIDERS: ATTEND Nurse Practitioner Family
DX: E66.01 Morbid (severe) obesity due to excess calories (principal); Z68.41 Body mass index [BMI] 40.0-44.9, adult
CPT/HCPCS: 36415; 80050; 80061; 83036; 83721

== ENCOUNTER 2023-02-11 08:41 | Day surgery (SDC) | payer MEDICAID ==
[2023-02-11] MEDS ORDERED: LIDOCAINE-PF 2% 10 ML AMP SUBQ ONE (09:08)
[2023-02-11] MEDS ORDERED: MIDAZOLAM 2 MG/2 ML VIAL ONE (09:08)
[2023-02-11] MEDS ORDERED: PROPOFOL 500 MG/50 ML 500 MG/50 ML VIAL ONE (09:09)
[2023-02-11] MEDS ORDERED: LACTATED RINGERS 1,000 ML IV ONE (09:09)
--- NOTE | 2023-02-11 09:13 | ANESTHESIA ---
Pre-Anesthesia VS, & Labs - Diagnosis upper lower abdominal pain - Procedure egd, cscope Vital Signs: Temp Pulse Resp BP Pulse Ox O2 Flow Rate 36.1 C L 67 12 109/76 97 02/11/23 09:02 02/11/23 09:02 02/11/23 09:02 02/11/23 09:02 02/11/23 09:02 Height: 5 ft 7 in Weight (kg): 113.4 kg Body Mass Index: 39.1 BMI Classification: Obese - NPO >8 hours Last Fluid Intake: am prep - Is Patient ?: Waiver signed - Lab Results Lab results reviewed: Yes Home Medications and Allergies Home Medications: Ambulatory Orders Citalopram [CeleXA] 10 mg PO DAILY 02/10/23 Magnesium Oxide [Magnesium] 400 mg PO DAILY 02/10/23 Docusate Sodium 250Mg Capsule [Colace 250Mg Capsule] 1 cap PO DAILY 02/11/23 Citalopram [CeleXA] 10 mg PO DAILY 02/10/23 Magnesium Oxide [Magnesium] 400 mg PO DAILY 02/10/23 Docusate Sodium 250Mg Capsule [Colace 250Mg Capsule] 1 cap PO DAILY 02/11/23 Allergies/Adverse Reactions: Allergies Allergy/AdvReac Type Severity Reaction Status Date / Time No Known Drug Allergies Allergy Verified 02/10/23 13:22 Anes History & Medical History - Anesthetic History Anesthesia Complications: reports: No previous complications Family history of Anesthesia Complications: Denies Family history of Malignant Hyperthermia: Denies - Medical History Cardiovascular: Pulmonary: reports: Pneumonia Gastrointestinal: reports: GERD, Chronic constipation Urinary: reports: None Neuro: reports: None Musculoskeletal: reports: Osteoarthritis Endocrine/Autoimmune: reports: None Blood Disorders: reports: None Skin: reports: None Smoking Status: Current every day smoker Psychosocial: reports: Substance abuse, Opioid (hx, suboxone hx) - Surgical History Orthopedic: reports: ACL reconstruction, Other Exam General: Alert, Oriented x3, Cooperative Dental: WNL Mouth Openin Fingerbreadth Neck Mobility: Normal Mallampati classification: II Thyromental Distance: 4-6 cm Respiratory: Lungs clear, Normal breath sounds, No respiratory distress Cardiovascular: Regular rate Neurological: Normal speech Mental/Cognitive Status: Alert/Oriented X3, Normal for patient Cognitive Status: Within normal limits Plan Anesthesia Type: Total IV Consent for Procedure(s) Verified and Reviewed: Yes Code Status: Attempt Resuscitation ASA classification: 2-Mild systemic disease Is this case an emergency?: No
--- NOTE | 2023-02-11 10:05 | HISTORY & PHYSICAL EXAMINATION ---
Chief Complaint - Chief Complaint Chief Complaint: here for egd and colonoscopy History of Present Illness - History Obtained From Records Reviewed: yes History obtained from: pt Exam Limitations: none - History of Present Illness HPI Comment/Other: long standing gerd symptoms and blood on tissue after bm. 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 : reports: None HEENT: reports: None Psych: reports: Depression, Anxiety, Bipolar disorder, ADD/ADHD, Post traumatic stress disorder, Obsessive compulsive disorder Musculoskeletal: reports: Osteoarthritis Derm: reports: None MRSA Hx?: Yes - Past Surgical History Ortho: reports: ACL reconstruction, Other - POLST Patient has POLST: No Meds/Allgy - Home Medications Home Medications: Ambulatory Orders Medication Instructions Recorded Confirmed Citalopram [CeleXA] 10 mg PO DAILY 02/10/23 02/11/23 Magnesium Oxide [Magnesium] 400 mg PO DAILY 02/10/23 02/11/23 Docusate Sodium 250Mg Capsule 1 cap PO DAILY 02/11/23 02/11/23 [Colace 250Mg Capsule] - Allergies Allergies/Adverse Reactions: Allergies Allergy/AdvReac Type Severity Reaction Status Date / Time No Known Drug Allergies Allergy Verified 02/10/23 13:22 Review of Systems - Other Findings Other Findings: 10 pt ros as above otherwise unremarkable Exam - Vital Signs Vital Signs: Vital Signs x48h Temp Pulse Resp BP Pulse Ox 02/11/23 09:02 36.1 C L 67 12 109/76 97 - Physical Exam General Appearance: positive: No acute distress, Alert Eyes Bilateral: positive: PERRL, EOMI Neck: positive: No JVD, Trachea midline Respiratory: positive: No respiratory distress Cardiovascular: positive: Regular rate & rhythm Abdomen: positive: No distention Neurologic/Psychiatric: positive: Oriented x3 Conclusion/Plan - Problem List (1) Gastritis Conclusion/Plan: plan egd and colonoscopy. pt and primary care concerned about colon cancer - Lab Results Lab results reviewed: Yes
[2023-02-11] MEDS ORDERED: PROPOFOL 200 MG/20 ML VIAL IVP ONE ×2 (10:32→10:52)
[2023-02-11] MEDS ORDERED: LACTATED RINGERS 500 ML IV ONE ×2 (10:51)
[2023-02-11 11:08] VITALS: O2SAT 100
--- NOTE | 2023-02-11 11:25 | ANESTHESIA POST OP EVALUATION ---
Anesthesia Post Eval - Post Anesthesia Eval Vitals: Last Vital Signs Temp 36 C L 02/11/23 11:00 Pulse 82 02/11/23 11:00 Resp 15 02/11/23 11:00 BP 100/59 L 02/11/23 11:00 Pulse Ox 100 02/11/23 11:00 O2 Flow Rate CV Function Including HR & BP: Stable Pain Control: Satisfactory Nausea & Vomiting: Negative Mental Status: Baseline Respiratory Status: Airway Patent Hydration Status: Satisfactory Anesthesia Complications: None
[2023-02-11 11:38] VITALS: BP 111/65
== END 2023-02-11 08:42 | disposition home or self-care (01) ==
LOC: SDS 08:41
PROVIDERS: ATTEND Surgery
PROC: 0DB58ZX Excision of Esophagus, Via Natural or Artificial Opening Endoscopic, Diagnostic (ICD-10-PCS; principal; 2023-02-11 10:00)
PROC: 0DB68ZX Excision of Stomach, Via Natural or Artificial Opening Endoscopic, Diagnostic (ICD-10-PCS; 2023-02-11 10:00)
DX: Z12.11 Encounter for screening for malignant neoplasm of colon (principal); K21.9 Gastro-esophageal reflux disease without esophagitis; K59.09 Other constipation; K29.50 Unspecified chronic gastritis without bleeding; E66.9 Obesity, unspecified; Z68.39 Body mass index [BMI] 39.0-39.9, adult; F17.200 Nicotine dependence, unspecified, uncomplicated
CPT/HCPCS: 43239; 45378; J7120

== ENCOUNTER 2023-03-07 08:00 | Outpatient (CLI) | payer MEDICAID ==
[2023-03-07 19:41] LABS: CHLAMYDIA TRACHOMATIS DNA NEGATIVE (NEGATIVE); NEISSERIA GONORRHOEAE DNA NEGATIVE (NEGATIVE); TRICHOMONAS VAGINALIS DNA NEGATIVE (NEGATIVE)
== END 2023-03-07 23:59 | disposition home or self-care (01) ==
LOC: LAB.WC 08:00
PROVIDERS: ATTEND Nurse Practitioner
DX: Z11.3 Encounter for screening for infections with a predominantly sexual mode of transmission (principal)
CPT/HCPCS: 87491; 87591; 87661

== ENCOUNTER 2023-03-11 07:40 | Outpatient (CLI) | payer MEDICAID ==
--- NOTE | 2023-03-11 09:51 | XRAY Report ---
PROCEDURE: Knee 3 View LT INDICATIONS: CALF PAIN,LEFT TECHNIQUE: 3 views of the left knee(s) were acquired. COMPARISON: None. FINDINGS: Bones: There is prior ACL reconstruction. No gross hardware loosening or failure is seen. Alignment of left knee is anatomic. Mild to moderate medial femoral tibial compartment joint space narrowing, s ubchondral sclerosis and marginal osteophyte formation is seen. No fractures or dislocations. No dawson picious bony lesions. Soft tissues: Small knee joint effusion. No suspicious soft tissue calcifications or masses. IMPRESSION: Prior left ACL repair. No evidence of hardware loosening or failure. No acute fracture or dislocation . Mild to moderate medial femoral tibial compartment osteoarthritis. Reviewed by: Gumaro Augustin MD on 03/11/2023 9:50 AM PDT Approved by: Gumaro Augustin MD on 03/11/2023 9:50 AM PDT Station ID: [id number]
== END 2023-03-11 07:41 | disposition home or self-care (01) ==
LOC: DI 07:40
PROVIDERS: ATTEND Registered Nurse
DX: M17.12 Unilateral primary osteoarthritis, left knee (principal)

== ENCOUNTER 2023-03-31 08:00 | Outpatient (CLI) | payer MEDICAID ==
--- NOTE | 2023-03-31 13:59 | XRAY Report ---
PROCEDURE: Wrist 3 View BILAT INDICATIONS: BILAT WRIST PAIN TECHNIQUE: 3 views of the wrist were acquired. COMPARISON: Left finger radiographs 12/23/2020. FINDINGS: Bones: No fractures or dislocations. No suspicious bony lesions. Soft tissues: No suspicious soft tissue calcifications or masses. IMPRESSION: No significant osseous abnormality. Reviewed by: Richy Ng MD on 03/31/2023 1:58 PM PDT Approved by: Richy Ng MD on 03/31/2023 1:58 PM PDT Station ID: [id number]
== END 2023-03-31 23:59 | disposition home or self-care (01) ==
LOC: DI.WOS 08:00
PROVIDERS: ATTEND Orthopaedic Surgery
DX: G56.01 Carpal tunnel syndrome, right upper limb (principal); G56.02 Carpal tunnel syndrome, left upper limb

== ENCOUNTER 2024-01-12 08:00 | Outpatient (CLI) | payer MEDICAID | END 2024-01-12 23:59 | disposition home or self-care (01) | LOC: LAB.N 08:00 | PROVIDERS: ATTEND Family Medicine | DX: R30.0 Dysuria (principal) | CPT/HCPCS: 87086 ==